=== PATIENT | female | born 1995 | race American Indian/Alaskan Native ===

== ENCOUNTER 2019-06-25 14:58 | Emergency (ER) | payer MEDICAID ==
--- NOTE | 2019-06-25 15:14 | Emergency Department Report ---
Blank Doc - Documentation Documentation: The patient was seen in triage for with lower abdominal pain associ ated with vaginal bleeding and cramping. Labs/imaging ordered to evaluate for a cause of this complaint. Vital signs reviewed, patient awake and alert in NAD. PLAN ED vaginal bleeding protocol with ultrasound.
[2019-06-25 15:33] LABS: Basophils % (Auto) 0.4 % (0.0-1.8); Eosinophils % (Auto) 0.6 % (0.0-4.3); Hematocrit 36.8 % (30.3-42.9); Hemoglobin 12.3 gm/dl (10.1-14.3); Lymphocytes # (Auto) 1.6 K/mm3 (1.2-5.4); Lymphocytes % (Auto) 20.4 % (13.4-35.0); Mean Corpuscular HGB Conc 33 % (30-34); Mean Corpuscular Volume 89 fl (79-97); Monocytes # (Auto) 0.7 K/mm3 (0.0-0.8); Monocytes % (Auto) 8.5 % (0.0-7.3); Platelet Count 245 K/mm3 (140-440); Red Blood Count 4.15 M/mm3 (3.65-5.03); Red Cell Distribution Width 17.3 % (13.2-15.2)
[2019-06-25 15:41] LABS: INR 1.02 (0.87-1.13)
[2019-06-25 17:15] LABS: Bacteria,Urine 2+ /HPF (Negative); Bilirubin,Urine NEG (Negative); Blood,Urine NEG (Negative); Color,Urine Yellow (Yellow); Mucus,Urine FEW /HPF; Protein,Urine <15 mg/dL mg/dL (Negative); Urobilinogen,Urine < 2.0 mg/dL (<2.0)
--- NOTE | 2019-06-25 17:19 | Ultrasound Report ---
OBSTETRICAL ULTRASOUND. HISTORY: Pelvic pain. FINDINGS: Imaging was performed by transabdominally and endovaginally. A single, viable intrauterine is dated 14 weeks 1 day with an estimated date of conception of 12/23/2019. heart tones are 159 bpm. The placenta is posteriorly located and low-lying. No hemorrhage is identified. IMPRESSION: 1. Viable intrauterine dated at 14 weeks 1 day. 2. Low-lying placenta. Signer Name: James Wayne MD Signed: 06/25/2019 5:15 PM Workstation Name: [id number]
[2019-06-25] MEDS ORDERED: METOCLOPRAMIDE 10 MG TAB PO ONE (18:24)
[2019-06-25] MEDS ORDERED: ACETAMINOPHEN 325 MG TAB PO ONE (18:24)
--- NOTE | 2019-06-25 18:33 | Emergency Department Report ---
ED HPI - General Chief complaint: Vaginal Bleeding Stated complaint: 14 WEEKS PREG BLEEEDING/CRAMP Time Seen by Provider: 06/25/19 15:11 Source: patient Mode of arrival: Ambulatory Limitations: No Limitations - History of Present Illness Initial comments: Patient is a 24-year-old female presents emergency room with complaints of abdominal cramping that began today. She states that she had one episode of vomiting. She states that she went to the bathroom and had a normal bowel movement but noticed some vaginal bleeding. She states that the bleeding is since stopped. She denies any diarrhea, fever, urinary symptoms. She states her FOWL BLOOD TESTER is at [facility]. She denies any past medical history or allergies to medications. She states her last menstrual cycle was March 20, 2019. she is currently 14 weeks . /P:1/A:0 - Related Data Previous Rx's Medication Instructions Recorded Last Taken Type Acetaminophen [8Hr Muscle 650 mg PO Q8HR PRN #20 tablet.er 06/25/19 Unknown Rx Aches-Pain] Metoclopramide [Reglan] 10 mg PO Q8HR PRN #10 tab 06/25/19 Unknown Rx cephALEXin [Keflex] 500 mg PO BID 7 Days #14 cap 06/25/19 Unknown Rx Allergies Allergy/AdvReac Type Severity Reaction Status Date / Time No Known Allergies Allergy Verified 06/25/19 15:01 ED Review of Systems ROS: Stated complaint: 14 WEEKS PREG BLEEEDING/CRAMP Other details as noted in HPI Comment: All other systems reviewed and negative ED Past Medical Hx - Past Medical History Previous Medical History?: No - Surgical History Past Surgical History?: No - Social History Smoking Status: Never Smoker Substance Use Type: None - Medications Home Medications: Home Medications Medication Instructions Recorded Confirmed Last Taken Type Acetaminophen [8Hr Muscle 650 mg PO Q8HR PRN #20 tablet.er 06/25/19 Unknown Rx Aches-Pain] Metoclopramide [Reglan] 10 mg PO Q8HR PRN #10 tab 06/25/19 Unknown Rx cephALEXin [Keflex] 500 mg PO BID 7 Days #14 cap 06/25/19 Unknown Rx ED Physical Exam - General Limitations: No Limitations General appearance: alert, in no apparent distress - Head Head exam: Present: atraumatic, normocephalic - Eye Eye exam: Present: normal appearance - ENT ENT exam: Present: mucous membranes moist - Respiratory Respiratory exam: Present: normal lung sounds bilaterally. Absent: respiratory distress, wheezes, rales, rhonchi, stridor, chest wall tenderness, accessory muscle use, decreased breath sounds, prolonged expiratory - Cardiovascular Cardiovascular Exam: Present: regular rate, normal rhythm, normal heart sounds. Absent: systolic murmur, diastolic murmur, rubs, gallop - GI/Abdominal GI/Abdominal exam: Present: soft, normal bowel sounds. Absent: distended, tenderness, guarding, rebound, rigid - Neurological Exam Neurological exam: Present: alert, oriented X3 - Psychiatric Psychiatric exam: Present: normal affect, normal mood - Skin Skin exam: Present: warm, dry, intact ED Course Vital Signs 06/25/19 06/25/19 06/25/19 15:06 15:24 18:35 Temperature 98.0 F 98.0 F Pulse Rate 109 H 103 H 91 H Respiratory 20 20 18 Rate Blood Pressure 127/73 127/73 Blood Pressure 120/70 [Left] O2 Sat by Pulse 100 100 99 Oximetry ED Medical Decision Making - Lab Data Result diagrams: 06/25/19 15:20 Lab Results 06/25/19 06/25/19 06/25/19 Range/Units 15:20 15:20 15:20 WBC 7.7 (4.5-11.0) K/mm3 RBC 4.15 (3.65-5.03) M/mm3 Hgb 12.3 (10.1-14.3) gm/dl Hct 36.8 (30.3-42.9) % MCV 89 (79-97) fl MCH 30 (28-32) pg MCHC 33 (30-34) % RDW 17.3 H (13.2-15.2) % Plt Count 245 (140-440) K/mm3 Lymph % (Auto) 20.4 (13.4-35.0) % [place] % (Auto) 8.5 H (0.0-7.3) % Eos % (Auto) 0.6 (0.0-4.3) % Baso % (Auto) 0.4 (0.0-1.8) % Lymph # 1.6 (1.2-5.4) K/mm3 [place] # 0.7 (0.0-0.8) K/mm3 Eos # 0.0 (0.0-0.4) K/mm3 Baso # 0.0 (0.0-0.1) K/mm3 Seg Neutrophils % 70.1 H (40.0-70.0) % Seg Neutrophils # 5.4 (1.8-7.7) K/mm3 PT 13.5 (12.2-14.9) Sec. INR 1.02 (0.87-1.13) HCG, Quant 40045 H (0-4) mIU/mL Urine Color (Yellow) Urine Turbidity (Clear) Urine pH (5.0-7.0) Ur Specific [place] (1.003-1.030) Urine Protein (Negative) mg/dL Urine Glucose (UA) (Negative) mg/dL Urine Ketones (Negative) mg/dL Urine Blood (Negative) Urine Nitrite (Negative) Urine Bilirubin (Negative) Urine Urobilinogen (<2.0) mg/dL Ur Leukocyte Esterase (Negative) Urine WBC (Auto) (0.0-6.0) /HPF Urine RBC (Auto) (0.0-6.0) /HPF U Epithel Cells (Auto) (0-13.0) /HPF Urine Bacteria (Auto) (Negative) /HPF Urine Mucus /HPF Blood Type Ord Rhogam Gestat Weeks WEEKS 06/25/19 06/25/19 Range/Units 15:20 16:11 WBC (4.5-11.0) K/mm3 RBC (3.65-5.03) M/mm3 Hgb (10.1-14.3) gm/dl Hct (30.3-42.9) % MCV (79-97) fl MCH (28-32) pg MCHC (30-34) % RDW (13.2-15.2) % Plt Count (140-440) K/mm3 Lymph % (Auto) (13.4-35.0) % [place] % (Auto) (0.0-7.3) % Eos % (Auto) (0.0-4.3) % Baso % (Auto) (0.0-1.8) % Lymph # (1.2-5.4) K/mm3 [place] # (0.0-0.8) K/mm3 Eos # (0.0-0.4) K/mm3 Baso # (0.0-0.1) K/mm3 Seg Neutrophils % (40.0-70.0) % Seg Neutrophils # (1.8-7.7) K/mm3 PT (12.2-14.9) Sec. INR (0.87-1.13) HCG, Quant (0-4) mIU/mL Urine Color Yellow (Yellow) Urine Turbidity Clear (Clear) Urine pH 7.0 (5.0-7.0) Ur Specific [place] 1.014 (1.003-1.030) Urine Protein <15 mg/dl (Negative) mg/dL Urine Glucose (UA) Neg (Negative) mg/dL Urine Ketones 20 (Negative) mg/dL Urine Blood Neg (Negative) Urine Nitrite Neg (Negative) Urine Bilirubin Neg (Negative) Urine Urobilinogen < 2.0 (<2.0) mg/dL Ur Leukocyte Esterase Tr (Negative) Urine WBC (Auto) 1.0 (0.0-6.0) /HPF Urine RBC (Auto) 1.0 (0.0-6.0) /HPF U Epithel Cells (Auto) 6.0 (0-13.0) /HPF Urine Bacteria (Auto) 2+ (Negative) /HPF Urine Mucus Few /HPF Blood Type O POSITIVE Ord Rhogam Gestat Weeks Rh pos WEEKS - Radiology Data Radiology results: report reviewed OBSTETRICAL ULTRASOUND. HISTORY: Pelvic pain. FINDINGS: Imaging was performed by transabdominally and endovaginally. A single, viable intrauterine is dated 14 weeks 1 day with an estimated date of conception of 12/23/2019. heart tones are 159 bpm. The placenta is posteriorly located and low-lying. No hemorrhage is identified. IMPRESSION: 1. Viable intrauterine dated at 14 weeks 1 day. 2. Low-lying placenta. Signer Name: James Wayne MD Signed: 06/25/2019 5:15 PM Workstation Name: [id number] Transcribed By: ES Dictated By: James Wayne MD Electronically Authenticated By: James Wayne MD Signed Date/Time: 06/25/191714 DD/ 04 TD/TT: - Medical Decision Making Patient is a 24-year-old female presents emergency room with complaints of abdominal cramping that began today. She states that she had one episode of vomiting. She states that she went to the bathroom and had a normal bowel movement but noticed some vaginal bleeding. She states that the bleeding is si nce stopped. She denies any diarrhea, fever, urinary symptoms. She states her FOWL BLOOD TESTER is at [facility]. She denies any past medical history or allergies to medications. She states her last menstrual cycle was March 20, 2019. she is currently 14 weeks . /P:1/A:0. Initial vitals with mild tachycardia which improved upon repeat. [place] [address]. Rh positive. OB US: 1. Viable intrauterine dated at 14 weeks 1 day. 2. Low-lying placenta. UA with 2+ white blood cells and trace leukocyte esterase, given that patient is we will treat for UTI. Patient given Tylenol and Reglan and symptoms improved. Patient is able to tolerate p.o. in take without difficulty. Discussed all results with patient. Advised patient that we would diagnose her with a threatened miscarriage secondary to vaginal spotting and that this would need to be followed closely by her FOWL BLOOD TESTER, patient verbalized understanding. Patient given prescription for Keflex, Reglan, Tylenol. advised pt to Please take medication as prescribed. Increase your fluid intake over the next several days. Please practice pelvic rest. Avoid sexual intercourse. Follow-up with the FOWL BLOOD TESTER in the next 3 days for reexamination. Return to the emergency room immediately for any new or worsening symptoms. - Differential Diagnosis IUP, hemorrhagic cyst, subchorionic hemorrhage, placenta previa/abruption Critical care attestation.: If time is entered above; I have spent that time in minutes in the direct care of this critically ill patient, excluding procedure time. ED Disposition Clinical Impression: Abdominal cramping, Vaginal spotting, Threatened miscarriage UTI (urinary tract infection) Qualifiers: Urinary tract infection type: acute cystitis Hematuria presence: without hematuria Qualified Code(s): N30.00 - Acute cystitis without hematuria Disposition: TO HOME OR SELFCARE Is pt being admited?: No Does the pt Need Aspirin: No Condition: Stable Instructions: Threatened Miscarriage (ED), Urinary Tract Infection in Women (ED), Abdominal Pain in (ED) Additional Instructions: Please take medication as prescribed. Increase your fluid intake over the next several days. Please practice pelvic rest. Avoid sexual intercourse. Follow- up with the FOWL BLOOD TESTER in the next 3 days for reexamination. Return to the emergency room immediately for any new or worsening symptoms. Prescriptions: Acetaminophen [8Hr Muscle Aches-Pain] 650 mg PO Q8HR PRN #20 tablet.er PRN Reason: abd cramping cephALEXin [Keflex] 500 mg PO BID 7 Days #14 cap Metoclopramide [Reglan] 10 mg PO Q8HR PRN #10 tab PRN Reason: Nausea And Vomiting Referrals: [facility] [Provider Group] - 2-3 Days ROYAL WU MD [Primary Care Provider] - 2-3 Days Time of Disposition: 18:55 Print Language: TANZANIAN
[2019-06-25 18:35] VITALS: BP 120/70
== END 2019-06-25 19:04 | disposition home or self-care (01) ==
LOC: ED 14:58
DX: O20.0 Threatened abortion (principal); O23.42 Unspecified infection of urinary tract in pregnancy, second trimester; Z3A.14 14 weeks gestation of pregnancy; Z79.899 Other long term (current) drug therapy
CPT/HCPCS: 36415; 76801; 76805; 76817; 81001; 84702; 85025; 85610; 86900; 86901

== ENCOUNTER 2021-01-14 04:20 | Emergency (ER) | payer SELFPAY ==
[2021-01-14 04:37] VITALS: BP 115/81
[2021-01-14] MEDS ORDERED: SODIUM CHLORIDE 0.9% 1000 ML 1,000 ML IV ONE (06:50)
[2021-01-14] MEDS ORDERED: ONDANSETRON 4 MG/2 ML INJ IV ONE (06:50)
[2021-01-14] MEDS ORDERED: FAMOTIDINE 20 MG/2 ML INJ IV ONE (06:50)
[2021-01-14 07:19] LABS: Basophils % (Auto) 0.4 % (0.0-1.8); Hematocrit 37.9 % (30.3-42.9); Hemoglobin 12.7 gm/dl (10.1-14.3); Lymphocytes # (Auto) 1.6 K/mm3 (1.2-5.4); Lymphocytes % (Auto) 20.4 % (13.4-35.0); Mean Corpuscular HGB Conc 33 % (30-34); Mean Corpuscular Volume 84 fl (79-97); Monocytes # (Auto) 0.8 K/mm3 (0.0-0.8); Monocytes % (Auto) 10.3 % (0.0-7.3); Platelet Count 235 K/mm3 (140-440); Red Blood Count 4.51 M/mm3 (3.65-5.03)
--- NOTE | 2021-01-14 07:21 | Emergency Department Report ---
ED Abdominal Pain HPI - General Chief Complaint: Chest Pain Stated Complaint: NAUSEA CHEST PAIN STOMACH PAIN Time Seen by Provider: 01/14/21 06:27 Source: patient Mode of arrival: Ambulatory Limitations: No Limitations - History of Present Illness Initial Comments: 25-year-old female with history of previous presents to the hospital complaining GI symptoms and shortness of breath. Patient has had intermittent GI symptoms since November. Every morning she wakes up with nausea, vomiting, and diarrhea. Symptoms improved throughout the day. For the past 4 days symptoms have been more persistent. She complains of mild lower and upper abdominal pain. Patient complains of felt lightheaded, dizzy, and weak all over. She complains of feeling pressure with deep inhalation and feeling like it is hard to breathe. She denies chest pain or pleuritic chest pain. She denies cough, fever, loss of sense of taste or smell. She is not vaccinated for Covid. Patient admits to suicide attempt in December in which she took a handful of Advil. She was not medically evaluated. She does complain of a burning sensation in her chest and throat at times since ingestion. She denies urinary symptoms. LMP December 22 until December 29. Patient traveled here from [place] and November prior to symptom onset denies history of PE/DVT, not currently on control - Related Data Previous Rx's Medication Instructions Recorded Last Taken Type Acetaminophen [8Hr Muscle 650 mg PO Q8HR PRN #20 tablet.er 06/25/19 Unknown Rx Aches-Pain] Acetaminophen [Acetaminophen 8 650 mg PO Q8HR PRN #15 tablet.er 01/14/21 Unknown Rx Hour] Famotidine [Pepcid] 20 mg PO BID #30 tablet 01/14/21 Unknown Rx Ondansetron [Zofran Odt] 4 mg PO Q8HR PRN #20 tab.rapdis 01/14/21 Unknown Rx Allergies Allergy/AdvReac Type Severity Reaction Status Date / Time No Known Allergies Allergy Verified 06/25/19 15:01 ED Review of Systems ROS: Stated complaint: NAUSEA CHEST PAIN STOMACH PAIN Other details as noted in HPI Comment: All other systems reviewed and negative ED Past Medical Hx - Past Medical History Previous Medical History?: No - Surgical History Past Surgical History?: Yes Additional Surgical History: c section - Social History Smoking Status: Never Smoker Substance Use Type: None - Medications Home Medications: Home Medications Medication Instructions Recorded Confirmed Last Taken Type Acetaminophen [8Hr Muscle 650 mg PO Q8HR PRN #20 tablet.er 06/25/19 01/14/21 Unknown Rx Aches-Pain] Acetaminophen [Acetaminophen 8 650 mg PO Q8HR PRN #15 tablet.er 01/14/21 Unknown Rx Hour] Famotidine [Pepcid] 20 mg PO BID #30 tablet 01/14/21 Unknown Rx Ondansetron [Zofran Odt] 4 mg PO Q8HR PRN #20 tab.rapdis 01/14/21 Unknown Rx ED Physical Exam - General Limitations: No Limitations - Other Other exam information: General: No acute distress Head: Atraumatic Eyes: normal appearance ENT: Moist mucous membranes Neck: Normal appearance, no midline tenderness Chest: Clear to auscultation bilaterally CV: Regular rate and rhythm Abdomen: Soft, normal bowel sounds, mild epigastric and suprapubic abdominal tenderness, nondistended, no rebound or guarding Back: Normal inspection Extremity: Normal inspection, full range of motion, no calf tenderness or leg edema Neuro: Alert O x 3, no facial asymmetry, speech clear, no gross motor sensory deficit Psych: Appropriate behavior Skin: No rash ED Course Vital Signs 01/14/21 04:34 Temperature 99.1 F Pulse Rate 86 Respiratory 18 Rate Blood Pressure 115/81 O2 Sat by Pulse 99 Oximetry - Reevaluation(s) Reevaluation #1: 01/14/21 09:10 Patient reports feeling better ED treatment ED Medical Decision Making - Lab Data Result diagrams: 01/14/21 06:53 01/14/21 06:53 Lab Results 01/14/21 01/14/21 01/14/21 Range/Units 06:53 06:53 06:53 WBC 7.7 (4.5-11.0) K/mm3 RBC 4.51 (3.65-5.03) M/mm3 Hgb 12.7 (10.1-14.3) gm/dl Hct 37.9 (30.3-42.9) % MCV 84 (79-97) fl MCH 28 (28-32) pg MCHC 33 (30-34) % RDW 16.0 H (13.2-15.2) % Plt Count 235 (140-440) K/mm3 Lymph % (Auto) 20.4 (13.4-35.0) % [place] % (Auto) 10.3 H (0.0-7.3) % Eos % (Auto) 0.0 (0.0-4.3) % Baso % (Auto) 0.4 (0.0-1.8) % Lymph # (Auto) 1.6 (1.2-5.4) K/mm3 [place] # (Auto) 0.8 (0.0-0.8) K/mm3 Eos # (Auto) 0.0 (0.0-0.4) K/mm3 Baso # (Auto) 0.0 (0.0-0.1) K/mm3 Seg Neutrophils % 68.9 (40.0-70.0) % Seg Neutrophils # 5.3 (1.8-7.7) K/mm3 D-Dimer (0-234) ng/mlDDU Sodium 138 (137-145) mmol/L Potassium 4.6 (3.6-5.0) mmol/L Chloride 103.1 (98-107) mmol/L Carbon Dioxide 17 L (22-30) mmol/L Anion Gap 23 mmol/L BUN 9 (7-17) mg/dL Creatinine 0.8 (0.6-1.2) mg/dL Estimated GFR > 60 ml/min BUN/Creatinine Ratio 11 % Glucose 93 (65-100) mg/dL Calcium 10.2 (8.4-10.2) mg/dL Total Bilirubin 1.00 (0.1-1.2) mg/dL AST 21 (5-40) units/L ALT 6 L (7-56) units/L Alkaline Phosphatase 59 (35-129) units/L Total Protein 8.8 H (6.3-8.2) g/dL Albumin 5.3 H (3.9-5) g/dL Albumin/Globulin Ratio 1.5 % Lipase 24 (13-60) units/L HCG, Quant < 2 (0-4) mIU/mL 01/14/21 Range/Units 07:32 WBC (4.5-11.0) K/mm3 RBC (3.65-5.03) M/mm3 Hgb (10.1-14.3) gm/dl Hct (30.3-42.9) % MCV (79-97) fl MCH (28-32) pg MCHC (30-34) % RDW (13.2-15.2) % Plt Count (140-440) K/mm3 Lymph % (Auto) (13.4-35.0) % [place] % (Auto) (0.0-7.3) % Eos % (Auto) (0.0-4.3) % Baso % (Auto) (0.0-1.8) % Lymph # (Auto) (1.2-5.4) K/mm3 [place] # (Auto) (0.0-0.8) K/mm3 Eos # (Auto) (0.0-0.4) K/mm3 Baso # (Auto) (0.0-0.1) K/mm3 Seg Neutrophils % (40.0-70.0) % Seg Neutrophils # (1.8-7.7) K/mm3 D-Dimer < 135.00 (0-234) ng/mlDDU Sodium (137-145) mmol/L Potassium (3.6-5.0) mmol/L Chloride (98-107) mmol/L Carbon Dioxide (22-30) mmol/L Anion Gap mmol/L BUN (7-17) mg/dL Creatinine (0.6-1.2) mg/dL Estimated GFR ml/min BUN/Creatinine Ratio % Glucose (65-100) mg/dL Calcium (8.4-10.2) mg/dL Total Bilirubin (0.1-1.2) mg/dL AST (5-40) units/L ALT (7-56) units/L Alkaline Phosphatase (35-129) units/L Total Protein (6.3-8.2) g/dL Albumin (3.9-5) g/dL Albumin/Globulin Ratio % Lipase (13-60) units/L HCG, Quant (0-4) mIU/mL - EKG Data -: EKG Interpreted by Nd EKG shows normal: sinus rhythm, intervals (Normal interval), QRS complexes (Normal QRS duration), ST-T waves (No ST elevation PA) Rate: normal - EKG Data When compared to previous EKG there are: previous EKG unavailable - Radiology Data Radiology results: report reviewed (Chest x-ray: No acute finding) - Medical Decision Making 25-year-old female presents to the hospital with nausea, vomiting, chest discomfort/shortness of breath, and abdominal pain intermittent for the last 2 months. Patient also admits to overdose attempt via Advil in December in which she was not evaluated by Dr. Patient endorses a burning discomfort in chest. ED work-up including chest x-ray, EKG, CBC, CMP, and D-dimer are unremarkable with low pretest probability for pulmonary embolism and no symptoms of DVT. Patient symptoms improved with Zofran, Pepcid, and normal saline. Patient will be discharged home with symptomatic treatment and outpatient follow-up Critical Care Time: No Critical care attestation.: If time is entered above; I have spent that time in minutes in the direct care of this critically ill patient, excluding procedure time. ED Disposition Clinical Impression: GERD (gastroesophageal reflux disease), Nausea and vomiting, Dehydration Disposition: HOME / SELF CARE / HOMELESS Is pt being admited?: No Does the pt Need Aspirin: No Condition: Stable Instructions: Gastroesophageal Reflux Disease, Adult, [id number], Nausea and Vomiting, Adult Additional Instructions: Take the medication as prescribed. Follow-up with your doctor or doctor/clinic provided. Return if symptoms worsen as indicated by your discharge instructions. Prescriptions: Acetaminophen [Acetaminophen 8 Hour] 650 mg PO Q8HR PRN #15 tablet.er PRN Reason: Pain , Severe (7-10) Famotidine [Pepcid] 20 mg PO BID #30 tablet Ondansetron [Zofran Odt] 4 mg PO Q8HR PRN #20 tab.rapdis PRN Reason: Nausea And Vomiting Referrals: SPENCER CABEZAS MD [Staff Physician] - 7-10 days (GI doctor ) NU SHANKAR MD [Staff Physician] - 3-5 Days (Primary care doctor ) [facility] [Provider Group] - 3-5 Days (primary care clinic ) Time of Disposition: 09:13
[2021-01-14 07:24] LABS: Alanine Aminotransferase 6 units/L (7-56); Albumin 5.3 g/dL (3.9-5); BUN/Creatinine Ratio 11; Blood Urea Nitrogen 9 mg/dL (7-17); Calcium 10.2 mg/dL (8.4-10.2); Hemolysis Index 2
--- NOTE | 2021-01-14 08:07 | XRay Report ---
CHEST 2 VIEWS INDICATION / CLINICAL INFORMATION: sob. COMPARISON: None available. FINDINGS: SUPPORT DEVICES: None. HEART / MEDIASTINUM: No significant abnormality. LUNGS / PLEURA: No significant pulmonary or pleural abnormality. No pneumothorax. ADDITIONAL FINDINGS: No significant additional findings. IMPRESSION: 1. No acute findings. Signer Name: Sin Parra DO Signed: 01/14/2021 8:03 AM Workstation Name: [id number]
--- NOTE | 2021-01-16 11:14 | Electrocardiograph Report ---
[facility] Test Date: 2021-01-14 Test Time: 04:41:05 Pat Name: RASHAD THOMAS Department: Room: Gender: F Die Trimmer: CIARA : 1995 Requested By: BEHZAD YIN Order Number: [id number] Reading MD: Zaynab Peoples Measurements Intervals [place] Rate: 81 P: 46 FL: 122 QRS: 42 QRSD: 90 T: 52 QT: 391 QTc: 455 Interpretive Statements Sinus rhythm No previous ECG available for comparison Electronically Signed On 01-16-2021 11:13:53 EDT by Zaynab Peoples
== END 2021-01-14 09:33 | disposition home or self-care (01) ==
LOC: ED 04:20
DX: K21.9 Gastro-esophageal reflux disease without esophagitis (principal); R11.2 Nausea with vomiting, unspecified; E86.0 Dehydration; Z98.890 Other specified postprocedural states
CPT/HCPCS: 36415; 71046; 80053; 83690; 84702; 85025; 85379; 93005; 96361; 96374; 96375; 99284; J2405; J7030